=== PATIENT | male | born 1975 | race American Indian/Alaskan Native ===

== ENCOUNTER 2022-07-26 16:03 | Emergency (ER) | payer OTHER ==
[~2022-07-26] VITALS: Ht 177.8 cm; Wt 97.6 kg
[~2022-07-26 16:03] MED LIST: ALLEGRA ALLERGY60 MG PO; AMOX TR-K CLV1 EAC1 PO; GUAIFENESIN-CO118 M1 PO; HYDROCODON-ACE1 EA11 PO; LEVAQUIN750 MG PO; OXYCODON-ACETA1 EAC2 PO; PREDNISONE50 MG PO; VENTOLIN HFA18 GM INH
[2022-07-26] MEDS ORDERED: METRONIDAZOLE500 MG PO ×2 (23:33→23:58)
[2022-07-26] MEDS ORDERED: CIPRO500 MG PO (23:33)
--- NOTE | 2022-07-28 09:51 | EKG ---
[facility] [address] [facility] [place] [address] Signed Sinus tachycardia Otherwise normal ECG When compared with ECG of 05-OCT-2018 12:26, No significant change was found Confirmed by GALINDO ANNA MD ([id number]) on 07/28/2022 9:51:06 AM Electronically Signed By: GALINDO ANNA MD 07/28/22 0951 PATIENT NAME: ANNA LAMBERT Electrocardiogram DATE OF : 75 PHYSICIAN: GALINDO ANNA MD REPORT #: [id number] REPORT IS CONFIDENTIAL AND NOT TO BE RELEASED WITHOUT AUTHORIZATION
== END 2022-07-27 00:20 | disposition home or self-care (01) ==
LOC: ED 16:03
DX: K57.32 Diverticulitis of large intestine without perforation or abscess without bleeding (principal); Z87.891 Personal history of nicotine dependence
CPT/HCPCS: 36415; 51701; 74177; 80053; 81001; 83605; 85025; 85060; 85610; 85730; 93005; 93010; 99284-25; C9803; J1885; J2270; J2405; J2543; J7121; Q9967; U0003

== ENCOUNTER 2022-09-07 10:02 | Day surgery (SDC) | payer OTHER ==
[~2022-09-07] VITALS: Ht 177.8 cm; Wt 96.4 kg
[~2022-09-07 10:02] MED LIST changes: +CIPRO500 MG PO; +METRONIDAZOLE500 MG PO
--- NOTE | 2022-09-07 13:44 | NUR ---
09/07/22 1344 [place] 1340-PATIENT ARRIVED TO PACU ON 2L NC RR EVEN LAYING LEFT LATERAL. PATIENT AWAKE DROWSY DENIES PAIN OR NAUSEA. ABDOMEN SOFT. ENCOURAGED TO PASS GAS. IVF INFUSING. PATIENT DOZES BACK TO SLEEP.
--- NOTE | 2022-09-08 14:08 | OR ---
[facility] [address] [place], [place] [address] Signed DATE OF OPERATION: 09/07/2022 SURGEON: Joe Kline MD PREOPERATIVE DIAGNOSES: 1. Episodic dysphagia and heartburn symptoms. 2. Episodic bright red rectal bleeding. POSTOPERATIVE DIAGNOSES: 1. Ulcerative distal esophagitis without Shaffer's epithelium, low-grade stricture. 2. Duodenitis. 3. Diverticular changes of the sigmoid. 4. Polyps x3. 5. Internal hemorrhoids x1. ANESTHESIA: Intravenous sedation; fentanyl 150 mcg and Versed 7 mg total. INDICATION: This 47-year-old man is a patient of Dr. Mccracken at [facility] and has had two main complaints, one is mid esophageal dysphagia and episodic heartburn. The other is episodic rectal bleeding. He is admitted to undergo upper endoscopy to better characterize these problems. Additionally, colonoscopy will be undertaken. The risk of bleeding, infection, and perforation related to colonoscopy and upper endoscopy was reviewed with him. He understands and wished to proceed. FINDINGS: Upper endoscopy confirmed distal ulcerative esophagitis. There was no evidence of Shaffer's epithelium. He did have hiatal hernia. There was duodenitis as well. CLOtest was negative 15 minutes post procedure. On colonoscopy, the prep was excellent. Complete colonoscopy was undertaken to the cecum. He had diverticular change of the sigmoid. Three small polyps, left colon and rectosigmoid as well as at least one dominant internal hemorrhoid most likely accounting for his bleeding. DESCRIPTION OF PROCEDURE: The patient brought to the endoscopy suite and given topical lidocaine hypopharyngeal anesthesia. Intravenous sedation was induced to a point of slurred speech and nystagmus. A bite block was placed. An Olympus video upper endoscope was passed in the Electronically Signed By: JOE KLINE MD 09/08/22 1408 PATIENT NAME: ANNA LAMBERT OPERATIVE REPORT DATE OF : 75 REPORT #: [id number] PHYSICIAN: JOE KLINE MD PCP: ARIE MCCRACKEN MD REPORT IS CONFIDENTIAL AND NOT TO BE RELEASED WITHOUT AUTHORIZATION [facility] [address] [place], [place] [address] Signed hypopharynx. The vocal cords appeared normal. Scope was advanced to the esophagus without problem. Throughout its length, it was examined and the distal portion showed linear ulceration and rather severe distal esophagitis with low-grade stricture but no sign of Shaffer's epithelium or neoplasm. The scope was advanced to the stomach, which was insufflated with air. Rugal folds were normal. Pylorus was normal. Scope was passed through into the duodenum. Duodenal inflammation was noted, but no sign of ulceration was noted. Biopsies were obtained. The scope was withdrawn. Biopsy was taken of the antrum for both MELQUIADES and pathologic testing. Retroflexed view showed a hiatal hernia and poor flap valve. Scope was straightened ad withdrawn biopsies were taken of the distal ulcerative portion of the esophagus. A small stricture was noted as well, but it was not malignant in appearance. The scope was withdrawn and midesophageal biopsies were also obtained. Scope was removed. Plans were made for colonoscopy. Additional sedation was given. Digital rectal examination was normal. Olympus video colonoscope was passed in the rectum and manipulated throughout the colon noting diverticular change of the sigmoid. The scope was ultimately advanced to the cecum. The ileocecal valve appeared normal as did the appendiceal orifice. Scope was withdrawn from that point and examination throughout showed no sign of abnormality until approximately 90 cm (left colon) where a linear polyp was noted, possibly hyperplastic. It was excised with cold morcellation technique. Further withdrawal of the scope identified diverticular changes of the sigmoid once again and at the rectosigmoid, two small polyps, both excised with cold morcellation technique. Retroflexed view confirmed an internal hemorrhoid as might have been expected based on clinical symptoms of rectal bleeding. The scope was removed and the patient was taken to recovery room in good condition. CONCLUDING DIAGNOSES: 1. Gastroesophageal reflux related to hiatal hernia with distal esophagitis and low-grade stricture. 2. Internal hemorrhoid, most likely accounting for bleeding; additionally noted diverticulosis and polyps x3. PLAN: We will prescribe Prilosec 20 mg p.o. daily. We will see him back in the office in a few weeks. If he still has rectal bleeding, at that point hemorrhoidal banding may be appropriate. Joe Kline MD Electronically Signed By: JOE KLINE MD 09/08/22 1408 PATIENT NAME: ANNA LAMBERT OPERATIVE REPORT DATE OF : 75 REPORT #: [id number] PHYSICIAN: JOE KLINE MD PCP: ARIE MCCRACKEN MD REPORT IS CONFIDENTIAL AND NOT TO BE RELEASED WITHOUT AUTHORIZATION [address] [address] Signed /[facility] /[id number] cc: Arie Mccracken MD Copies: ARIE MCCRACKEN MD ~ Electronically Signed By: JOE KLINE MD 09/08/22 1408 PATIENT NAME: ANNA LAMBERT OPERATIVE REPORT DATE OF : 75 REPORT #: [id number] PHYSICIAN: JOE KLINE MD PCP: ARIE MCCRACKEN MD REPORT IS CONFIDENTIAL AND NOT TO BE RELEASED WITHOUT AUTHORIZATION
--- NOTE | 2022-09-11 15:03 | PATH ---
[facility] [address] [place], [place] [address] Signed SPECIMEN(S): A DUODENAL BIOPSY SPECIMEN(S): B ANTRUM/PYLORUS BIOPSY SPECIMEN(S): C DISTAL LOWER ESOPHAGEAL BIOPSY SPECIMEN(S): D MIDDLE ESOPHAGEAL BIOPSY SPECIMEN(S): E SIGMOID POLYP SPECIMEN(S): F RECTOSIGMOID POLYP SPECIMEN SOURCE: A. DUODENAL BIOPSY B. ANTRUM/PYLORUS BIOPSY C. DISTAL LOWER ESOPHAGEAL BIOPSY D. MIDDLE ESOPHAGEAL BIOPSY E. SIGMOID POLYP F. RECTOSIGMOID POLYP CLINICAL HISTORY: Hx: Dysphagia, epigastric pain, GERD, rectal bleeding. Post: Ulcerative esophagitis, hiatal hernia, duodenitis, Int. hemorrhoids, diverticulosis and polyps x 3. FINAL PATHOLOGIC DIAGNOSIS: A. Duodenal biopsy: - Benign duodenal mucosa, negative for specific diagnostic abnormality. B. Antrum / pylorus biopsy: - Benign gastric-type mucosa with focal slight chronic inflammation. - Negative for evidence of Helicobacter organisms on routine HE stained sections. C. Distal lower esophageal biopsy: - Esophageal and gastric mucosa with reactive features with moderate chronic and slight acute inflammation. - Negative for specialized intestinal metaplasia or dysplasia. D. Middle esophageal biopsy: - Benign esophageal epithelium, negative for increased epithelial eosinophils. E. Sigmoid polyp: - Polypoid fragments of benign colonic mucosa with slight hyperplastic features (multiple fragments). F. Rectosigmoid polyp: - Hyperplastic polyp (two fragments). JVR:[id number] MICROSCOPIC EXAMINATION: PATIENT NAME: PETRAANNA JAY PATHOLOGY DATE OF : 75 REPORT #: [id number] PHYSICIAN: MALLORY PULIDO PCP: ARIE ROLAND MD REPORT IS CONFIDENTIAL AND NOT TO BE RELEASED WITHOUT AUTHORIZATION [facility] [address] [place], [place] [address] Signed Histologic sections of all submitted blocks are examined by light microscopy. These findings, together with the gross examination, support the pathologic diagnosis. GROSS DESCRIPTION: Six specimens are received in six containers, labeled "Anna Lambert." A. The specimen, labeled " Petra Anna, #1," and designated on the requisition "duodenum biopsy," is received in formalin and consists of two de la cruz soft tissue fragment(s) that measure 0.4 and 0.6 cm in greatest dimension. The specimen is entirely submitted in cassette (A1). B. The specimen, labeled " Anna Lambert, #2," and designated on the requisition "antrum/pylorus biopsy," is received in formalin and consists of two de la cruz soft tissue fragment(s) that measure 0.4 and 0.5 cm in greatest dimension. The specimen is entirely submitted in cassette (B1). C. The specimen, labeled " Anna Lambert, #3," and designated on the requisition "distal lower esophagus biopsy," is received in formalin and consists of three pink-de la cruz soft tissue fragment(s) that measure 0.4-0.5 cm in greatest dimension. The specimen is entirely submitted in cassette (C1). D. The specimen, labeled " Pratibha Lambertall, #4," and designated on the requisition "mid esophagus biopsy," is received in formalin and consists of five iqzcr-rhx-aga soft tissue fragment(s) that measure 0.1-0.7 cm in greatest dimension. The specimen is entirely submitted in cassette (D1). E. The specimen, labeled " Anna Lambert, #5," and designated on the requisition "descending/left colon polyp," is received in formalin and consists of six de la cruz soft tissue fragment(s) that measure 0.2-0.5 cm in greatest dimension. The specimen is entirely submitted in cassette (E1). F. The specimen, labeled " Anna Lambert, #6," and designated on the requisition "sigmoid rectum polyp 2," is received in formalin and consists of two de la cruz soft tissue fragment(s) that measure 0.2 and 0.3 cm in greatest dimension. The specimen is entirely submitted in cassette (F1). FB (under the direct supervision of a pathologist) The Gross Description was prepared using a voice recognition system. The report was reviewed for accuracy; however, sound-alike word errors, addition and/or deletions may occur. If there is any question about this report, please contact Client Services. PATIENT NAME: ANNA LAMBERT PATHOLOGY DATE OF : 75 REPORT #: [id number] PHYSICIAN: MALLORY PULIDO PCP: ARIE ROLAND MD REPORT IS CONFIDENTIAL AND NOT TO BE RELEASED WITHOUT AUTHORIZATION [facility] [address] [place] [id number] Signed PERFORMING LABORATORY: The technical component was performed by [facility], [address] [place] [address] (CLIA# [id number]). Professional interpretation was performed by [facility], [address] [place] [address]., [place] [address] (CLIA#: [id number]). Diagnostician: Maik Cedeño MD Pathologist Electronically Signed 09/11/2022 Copies: ~ PATIENT NAME: ANNA LAMBERT PATHOLOGY DATE OF : 75 REPORT #: [id number] PHYSICIAN: MALLORY PATHOLOGY PCP: ARIE ROLAND MD REPORT IS CONFIDENTIAL AND NOT TO BE RELEASED WITHOUT AUTHORIZATION
== END 2022-09-07 14:30 | disposition home or self-care (01) ==
LOC: OPS 10:02 → DS 10:05 → OPS 14:30
PROVIDERS: ATTEND Surgery
PROC: 0D5N8ZZ Destruction of Sigmoid Colon, Via Natural or Artificial Opening Endoscopic (ICD-10-PCS; 2022-09-07)
PROC: 0DB58ZX Excision of Esophagus, Via Natural or Artificial Opening Endoscopic, Diagnostic (ICD-10-PCS; principal; 2022-09-07 14:30)
PROC: 0D5G8ZZ Destruction of Left Large Intestine, Via Natural or Artificial Opening Endoscopic (ICD-10-PCS; 2022-09-07 14:30)
DX: K21.00 Gastro-esophageal reflux disease with esophagitis, without bleeding (principal); K22.10 Ulcer of esophagus without bleeding; K22.2 Esophageal obstruction; K62.5 Hemorrhage of anus and rectum; K29.80 Duodenitis without bleeding; K57.30 Diverticulosis of large intestine without perforation or abscess without bleeding; K64.8 Other hemorrhoids; K44.9 Diaphragmatic hernia without obstruction or gangrene; K63.5 Polyp of colon; Z86.16 Personal history of COVID-19
CPT/HCPCS: 99153; G0500; J2250; J3010; J7121

== ENCOUNTER 2022-10-16 18:36 | Emergency (ER) | payer OTHER ==
[~2022-10-16] VITALS: Ht 177.8 cm; Wt 96.2 kg
[2022-10-16] MEDS ORDERED: OMEPRAZOLE20 MG PO (18:58)
[2022-10-16] MEDS ORDERED: HYDROCHLOROTH12.5 M1 PO (21:54)
[2022-10-16] MEDS ORDERED: MECLIZINE HCL25 MG PO (21:54)
== END 2022-10-16 22:08 | disposition home or self-care (01) ==
LOC: ED 18:36
DX: R42 Dizziness and giddiness (principal); Z87.891 Personal history of nicotine dependence; Z79.899 Other long term (current) drug therapy
CPT/HCPCS: 36415; 70450; 80053; 81003; 85025; 96374; 99284-25; A9270; J2405

== ENCOUNTER 2025-03-06 08:18 | Emergency (ER) | payer OTHER ==
[~2025-03-06] VITALS: Ht 177.8 cm; Wt 98.0 kg
[~2025-03-06 08:18] MED LIST changes: +HYDROCHLOROTH12.5 M1 PO; +MECLIZINE HCL25 MG PO; +OMEPRAZOLE20 MG PO
[2025-03-06] MEDS ORDERED: FLUOXETINE HCL20 MG PO (08:29)
[2025-03-06] MEDS ORDERED: methylPREDNISolone SOD SUCC 125 MG/2 ML VIAL IV ONE (08:30)
[2025-03-06] MEDS ORDERED: diphenhydrAMINE HCL 50 MG/ML VIAL IV ONE (08:30)
[2025-03-06] MEDS ORDERED: EPIPEN AUTO INJECTOR 0.3 MG/0.3 ML ML IM ONE (08:45)
[2025-03-06] MEDS ORDERED: PREDNISONE20 MG PO (09:22)
[2025-03-06 10:03] VITALS: BP 141/93
== END 2025-03-06 10:03 | disposition home or self-care (01) ==
LOC: ED 08:18
DX: R05.9 Cough, unspecified (principal); J39.2 Other diseases of pharynx; T50.8X5A Adverse effect of diagnostic agents, initial encounter; Z87.891 Personal history of nicotine dependence; Z79.899 Other long term (current) drug therapy
CPT/HCPCS: 96374; 96375; 99283-25; J0171; J1200; J2919